=== PATIENT | female | born 1990 | race Hispanic/Latino ===

== ENCOUNTER 2017-09-22 11:24 | Emergency (ER) | payer BC ==
[2017-09-22 11:24] VITALS: BMI 21.9
--- NOTE | 2017-09-22 14:45 | ED PDOC ---
HPI: Abdomen Time Seen by Provider: 09/22/17 11:53 Chief Complaint (Nursing): GI Problem Chief Complaint (Provider): GI Problem History Per: Patient History/Exam Limitations: no limitations Onset/Duration Of Symptoms: Hrs Current Symptoms Are (Timing): Better Location Of Pain/Discomfort: Periumbilical Associated Symptoms: Nausea, Vomiting, Diarrhea. denies: Fever, Back Pain, Chest Pain Additional Complaint(s): Kathryn Wang is a 27 year old female with no past medical history, who is presenting to the ER with complaints of vomiting and diarrhea with associated periumbilical abdominal pain, onset this morning. Patient states that she had multiple episodes of non-bloody vomiting and watery diarrhea. She reports that she had sushi for dinner last night. Patient reports mild improvement in symptoms and denies any fever, sick contacts, back pain, chest pain, or shortness of breath. PMD: none provided Past Medical History Reviewed: Historical Data, Nursing Documentation, Vital Signs - Medical History PMH: Anemia (thalassemia), Fractures (R thumb) Denies: Chronic Kidney Disease - Surgical History Surgical History: No Surg Hx - Family History Family History: States: Unknown Family Hx - Social History Current smoker - smoking cessation education provided: Yes (light) Alcohol: Social Drugs: Denies - Home Medications Home Medications: Ambulatory Orders Medication Instructions Recorded Tramadol HCl [Ultram] 50 mg PO Q6 #15 tab 03/18/17 Docusate [Colace] 100 mg PO DAILY PRN 03/22/17 Ondansetron [Zofran] 8 mg PO DAILY PRN 03/22/17 Oxycodone HCl/Acetaminophen 1 each PO Q4 PRN 03/22/17 [Endocet 5-325 Tablet] Dicyclomine [Dicyclomine HCl] 10 mg PO TID #15 cap 09/22/17 Ondansetron ODT [Zofran ODT] 4 mg PO Q8 PRN #12 odt 09/22/17 - Allergies Allergies/Adverse Reactions: Allergies Allergy/AdvReac Type Severity Reaction Status Date / Time latex Allergy RASH Verified 09/22/17 11:43 Review of Systems ROS Statement: Except As Marked, All Systems Reviewed And Found Negative Constitutional: Negative for: Fever Cardiovascular: Negative for: Chest Pain Respiratory: Negative for: Shortness of Breath Gastrointestinal: Positive for: Nausea, Vomiting, Abdominal Pain, Diarrhea Musculoskeletal: Negative for: Back Pain Physical Exam - Reviewed Nursing Documentation Reviewed: Yes Vital Signs Reviewed: Yes - Physical Exam Appears: Positive for: Well, Non-toxic, No Acute Distress Head Exam: Positive for: ATRAUMATIC, NORMAL INSPECTION, NORMOCEPHALIC Skin: Positive for: Normal Color, Warm, Dry Eye Exam: Positive for: EOMI, Normal appearance, PERRL ENT: Positive for: Normal ENT Inspection Neck: Positive for: Normal, Painless ROM Cardiovascular/Chest: Positive for: Regular Rate, Rhythm. Negative for: Murmur Respiratory: Positive for: Normal Breath Sounds. Negative for: Respiratory Distress Gastrointestinal/Abdominal: Positive for: Normal Exam, Soft. Negative for: Tenderness, Distended, Guarding, Rebound Back: Positive for: Normal Inspection. Negative for: L CVA Tenderness, R CVA Tenderness, Vertebral Tenderness Extremity: Positive for: Normal ROM. Negative for: Deformity, Swelling Neurologic/Psych: Positive for: Alert, Oriented. Negative for: Motor/Sensory Deficits - Progress Re-evaluation Time: 14:00 Condition: Re-examined, Improved Medical Decision Making Medical Decision Making: Time: 13:07 Impression: Vomiting, Diarrhea Plan: --Zofran 4 mg PO --ED --ED Urine Dipstick Scribe Attestation: Documented by Jennifer Mcclellan, acting as a scribe for John Moses MD. Provider Scribe Attestation: All medical record entries made by the Scribe were at my direction and personally dictated by me. I have reviewed the chart and agree that the record accurately reflects my personal performance of the history, physical exam, medical decision making, and the department course for this patient. I have also personally directed, reviewed, and agree with the discharge instructions and disposition. Disposition - Clinical Impression Clinical Impression: Gastroenteritis - Patient ED Disposition Is Patient to be Admitted: No Doctor Will See Patient In The: Office Counseled Patient/Family Regarding: Studies Performed, Diagnosis, Need For Followup - Disposition Referrals: [facility], [facility] within [facility] [Outside] Disposition: Routine/Home Disposition Time: 14:30 Condition: GOOD Additional Instructions: Take your medications as instructed. Follow up with your PCP in 2-3 days. Prescriptions: Dicyclomine [Dicyclomine HCl] 10 mg PO TID #15 cap Ondansetron ODT [Zofran ODT] 4 mg PO Q8 PRN #12 odt PRN Reason: Nausea/Vomiting Instructions: Viral Gastroenteritis, Adult (DC)
== END 2017-09-22 15:28 | disposition home or self-care (01) ==
LOC: H.ER 11:24
DX: K52.9 Noninfective gastroenteritis and colitis, unspecified (principal); F17.200 Nicotine dependence, unspecified, uncomplicated; D56.9 Thalassemia, unspecified